=== PATIENT | female | born 1960 | race Caucasian/White ===

== ENCOUNTER 2017-06-21 14:33 | Outpatient (CLI) | payer OTHER ==
[~2017-06-21 14:33] MED LIST: HYZAAR 50/12.51 TAB PO; LATANOPROST IO; MOTRIN100 MG; VASOFLEX TABLET1 TAB PO; ZANTAC300 MG PO
== END 2017-06-21 15:00 | disposition home or self-care (01) ==
LOC: MAMO-SONO 14:33
DX: R10.9 Unspecified abdominal pain (principal); N95.0 Postmenopausal bleeding; Z12.31 Encounter for screening mammogram for malignant neoplasm of breast; N60.99 Unspecified benign mammary dysplasia of unspecified breast

== ENCOUNTER 2017-06-22 07:48 | Outpatient (CLI) | payer OTHER | END 2017-06-22 07:49 | disposition home or self-care (01) | LOC: LAB 07:48 | DX: E04.1 Nontoxic single thyroid nodule (principal); E78.00 Pure hypercholesterolemia, unspecified ==

== ENCOUNTER 2018-10-16 07:32 | Outpatient (CLI) | payer OTHER | END 2018-10-16 07:33 | disposition home or self-care (01) | LOC: LAB 07:32 | DX: E78.49 Other hyperlipidemia (principal); R42 Dizziness and giddiness; Z00.00 Encounter for general adult medical examination without abnormal findings; I10 Essential (primary) hypertension; R10.2 Pelvic and perineal pain ==

== ENCOUNTER 2019-01-20 08:35 | Outpatient (CLI) | payer OTHER | END 2019-01-20 13:49 | disposition home or self-care (01) | LOC: SONOGRAMA 08:35 | DX: N92.1 Excessive and frequent menstruation with irregular cycle (principal); R10.9 Unspecified abdominal pain ==